=== PATIENT | female | born 1960 | race Caucasian/White ===

== ENCOUNTER 2017-03-28 17:15 | Inpatient (IN) | payer OTHER ==
[~2017-03-28] VITALS: Ht 152.4 cm; Wt 68.0 kg
--- NOTE | 2017-03-28 17:23 | ED MVC/FALL/TRAUMA COMPLAINT ---
History of Present Illness General Chief Complaint: Lower Extremity Problems Stated Complaint: BIBA LEG PAIN Source: patient, old records, EMS Exam Limitations: no limitations Vital Signs & Intake/Output Vital Signs & Intake/Output Vital Signs Date Time Temp Pulse Resp B/P B/P Pulse O2 O2 Flow FiO2 Mean Ox Delivery Rate 03/28 2228 97.5 76 18 134/80 97 Room Air Room Air 03/28 2033 97.4 80 18 143/82 97 Room Air 03/28 1747 98.0 75 16 122/75 96 Room Air Triage Note: PT BIBA FROM HOME WITH QUESTION OF LLE FX. PER EMS, PT WAS GETTING UP FROM HER WHEELCHAIR WHEN SHE HEARD A SNAP TO HER LLE. PT SAT BACK IN CHAIR AND CALLED 911. PT ARRIVES A&O, NAD. VSS PER EMS. Triage Nurses Notes Reviewed? yes Onset: Abrupt Duration: day(s): (1), constant Timing: recent history Severity: moderate Severity Numbers: 8 Injuries/Fall Location: lower extremity (llle) Method of Injury: unknown Loss of Consciousness: no loss of consciousness No Modifying Factors: none Associated Symptoms: denies HPI: 56-year-old female with history of RSD, in pain management presents complaining of left knee left foot and ankle pain after she states she got up from her wheelchair today and heard a "snap and has been having pain since. She denies fall. The patient states for the past week she has had pain to the left leg of unknown etiology. She had an ultrasound performed last week that ruled out a blood clot. She denies any redness or warmth to the leg. No fever no chills no chest pain or shortness of breath. She been taking her pain medications as prescribed however without improvement. No other modifying factors or associated symptoms otherwise. (Antony Barreto) Past History Travel History Traveled to [place] past 21 day No Medical History Any Pertinent Medical History? see below for history Musculoskeletal: rsd Surgical History Surgical History: non-contributory Family History Hx Contributory? No (Antony Barreto) Review of Systems Review of Systems Constitutional: Reports: see HPI. Comments Review of systems: See HPI, All other systems negative. Constitutional, no chills no fever, no malaise HEENT: no sore throat no congestion Cardiovascular: No chest pain Skin: no rashes, no change in skin Respiratory: No dyspnea no cough no sputum GI: No nausea no vomiting, : No dysuria No hematuria, no frequency Muscle skeletal: No joint pain, no back pain, no neck pain, Neurologic: , no headache Heme/endocrine: No bruising Immunology: No lymphadenopathy (Antony Barreto) Physical Exam Physical Exam General Appearance: well developed/nourished, alert, awake Comments: Well-developed well-nourished person in no acute distress HEENT: Normal EENT exam; PERRL, EOMI. HEAD is atraumatic. moist mucous membranes. Neck: Supple, normal range of motion Back: Nontender, Full range of motion Cardiovascular: Regular rate and rhythms no murmurs rubs Respiratory: No respiratory distress. Patient speaking in full complete sentences. Breath sounds clear to auscultation bilaterally: NO W/R/R Hip/Pelvis: Atraumatic/Stable. FROM. Knee: Atraumatic/stable. FROM. No joint swelling, no effusion. No laxity. Negative mae/anterior drawer test. No pain with ROM Leg: b/l leg 4+ edema, 5 out of 5 strength in the lower extremity, normal dorsiflexion of great toe bilaterally, gross sensation is intact. Ankle/Foot: Atraumatic/stable. Skin intact. FROM. No swelling, no effusion. No laxity on exam Pulses: Normal/equal DP/PT pulses bilaterally. Brisk cap refill UPPER Extremity: No edema, full range of motion of extremities, normal and equal pulses bilaterally, 5 out of 5 strength noted to bilateral upper and lower extremities Neuro: Alert oriented x3, motor sensory normal, There were no obvious focal neurologic abnormalities. Skin: No appreciable rash on exposed skin, skin is warm and dry. Psych: Mood and affect is normal, memory and judgment is normal. Core Measures ACS in differential dx? No CVA/TIA Diagnosis No Sepsis Present: No Sepsis Focused Exam Completed? No (Antony Barreto) Progress Differential Diagnosis: ext injury, fx, sprain, contusion, tendon inj Plan of Care: Orders Procedure Date/time Status Heart Healthy Diet 03/29 B Active ED Holding Orders 03/28 2053 Active Admit to inpatient 03/28 2053 Active Vital Signs 03/28 2053 Active Code Status 03/28 2053 Active EKG 03/28 2051 Active Patient Data 03/28 2050 Active Durable Medical Equipment 03/28 1935 Active TROPONIN LEVEL 03/28 1918 Complete COMPREHENSIVE METABOLIC PANEL 03/28 1918 Complete CBC WITHOUT DIFFERENTIAL 03/28 1918 Complete EKG 03/28 1918 Active Intake & Output 03/28 1809 Active Laboratory Tests 03/28/17 2005: Anion Gap 10, Estimated GFR > 60, BUN/Creatinine Ratio 30.0 H, Glucose 101 H, Calcium 9.8, Total Bilirubin 0.5, AST 31, ALT 30, Alkaline Phosphatase 111, Troponin I < 0.01, Total Protein 8.0, Albumin 4.4, Globulin 3.6, Albumin/ Globulin Ratio 1.2, CBC w Diff NO MAN DIFF REQ, RBC 4.07 L, MCV 98.9, MCH 32.7 H, RDW 13.8, MPV 6.8 L, Gran % 80.1 H, Lymphocytes % 15.8 L, Monocytes % 3.7, Eosinophils % 0.2, Basophils % 0.2, Absolute Granulocytes 7.1 H, Absolute Lymphocytes 1.4, Absolute Monocytes 0.3, Absolute Eosinophils 0, Absolute Basophils 0, PUBS MCHC 33.0 Patient medicated with Dilaudid 1 mg IM x-rays ordered case discussed with Dr. Lambert agrees with plan. Patient reports pain in improved only temporarily discussed with the patient her family her x-ray findings may K with an additional 1 mg of Dilaudid, leg immobilizer applied case discussed with Dr. Ramos agrees with plan. case d/w dr hsu will admit. Diagnostic Imaging: Viewed by Me: Radiology Read. Discussed w/RAD: Radiology Read. Radiology Impression: PATIENT: WALTER LOVE PRESENT AGE: 56 PATIENT ACCOUNT NO: [id number] : 62 LOCATION: [facility] ORDERING PHYSICIAN: Antony SONI SERVICE DATE: 03/28/17 EXAM TYPE: RAD - XRY-KNEE COMPLETE LEFT EXAMINATION: XR KNEE, LEFT CLINICAL INFORMATION: Pain. [place] a snap. Rule out fracture. COMPARISON: None TECHNIQUE: AP, lateral, and both oblique views of the left knee. FINDINGS: There is a nondisplaced transverse fracture through the proximal tibial shaft. Bones are osteopenic. A subtle nondisplaced fracture is also likely present in the proximal fibular shaft at the metadiaphysis. No additional fractures are identified. There is mild to moderate tricompartmental degenerative arthritis in the knee. Small joint effusion. Soft tissues are swollen and edematous. IMPRESSION: 1. Nondisplaced transverse fractures of the proximal tibial and fibular diaphyses. 2. Osteopenia 3. Mild to moderate tricompartmental degenerative arthritis in the left knee DICTATED BY: Reji Kennedy MD DATE/TIME DICTATED:03/28/171919 RN PLACEMENT:EL DATE/TIME TRANSCRIBED:03/28/171919 CONFIDENTIAL, DO NOT COPY WITHOUT APPROPRIATE AUTHORIZATION. <Electronically signed in Other Vendor System> SIGNED BY: Reji Kennedy MD 03/28/171925, PATIENT: WALTER LOVE PRESENT AGE: 56 PATIENT ACCOUNT NO: [id number] : 64 LOCATION: [facility] ORDERING PHYSICIAN: Antony SONI SERVICE DATE: 03/28/17 EXAM TYPE: RAD - XRY-ANKLE 3 OR MORE VIEWS L EXAMINATION: XR ANKLE, LEFT CLINICAL INFORMATION: Pain. Rule out fracture. COMPARISON: None TECHNIQUE: AP, lateral, and mortise views of the left ankle. FINDINGS: Bones are osteopenic and gracile. Soft tissues are diffusely swollen and edematous. There is a deformity of the hindfoot with a collapsed, flattened appearance of the talar dome. This is favored to be chronic in nature. There is likely mild superimposed degenerative arthritis. The subtalar joint and calcaneus appear distorted as a result of the abnormal anatomy in this region. There is a 2.5 cm long osseous fragment in the region of the Achilles tendon which may have resulted from an avulsion fracture at the calcaneal insertion. This is positioned 2 cm from the calcaneal insertion is age-indeterminate. Mild degenerative arthritis is present IMPRESSION: 1. Abnormal morphology of the talar dome and hindfoot the hindfoot, most likely chronic or developmental in nature. There is mild associated talocrural degenerative arthritis. 2. A 2.5 cm osseous fragment in the region of the distal Achilles which could correspond to an avulsion injury at the insertion on the calcaneus. This is age-indeterminate. Sensitivity for hindfoot fractures is limited. Consider correlation with dedicated foot radiographs or CT if there is concern for fracture in this region. 3. Diffuse soft tissue swelling and subcutaneous edema. DICTATED BY: Reji Kennedy MD DATE/TIME DICTATED:03/28/171922 RN PLACEMENT:EL DATE/TIME TRANSCRIBED:03/28/171922 CONFIDENTIAL, DO NOT COPY WITHOUT APPROPRIATE AUTHORIZATION. <Electronically signed in Other Vendor System> SIGNED BY: Reji Kennedy MD 03/28/171930 Initial ED EKG: normal intervals, normal p-waves, normal QRS complex, normal sinus rhythm (Antony Barreto) Departure Departure Time of Disposition: 2039 Disposition: STILL A PATIENT Condition: Stable Clinical Impression Primary Impression: Fracture of proximal end of tibia and fibula Referrals: Unknown Departure Forms: Customer Survey General Discharge Information Admission Note Spoke With: Lopez Hsu MD Documentation of Exam: Documentation of any treatments & extenuating circumstances including Concerns Regarding Discharge (functional status, medication knowledge or non-compliance, living conditions, etc.) that warrant an admission rather than observation: ortho consult, iv pain control, pt consult, pt unsafe at home, unsafe ambulation , premature discharge woudl be medicall y harmful (Antony Barreto) Admission Note Documentation of Exam: Documentation of any treatments & extenuating circumstances including Concerns Regarding Discharge (functional status, medication knowledge or non-compliance, living conditions, etc.) that warrant an admission rather than observation: PA/GLASS FITTER Co-Sign Statement Statement: ED Attending supervision documentation- [X] I saw and evaluated the patient. I have also reviewed all the pertinent lab results and diagnostic results. I agree with the findings and the plan of care as documented in the PA's/GLASS FITTER's documentation. [X] I have reviewed the ED Record and agree with the PA's/GLASS FITTER's documentation. [] Additions or exceptions (if any) to the PAs/GLASS FITTER's note and plan are summarized below: [ADMIT FOR IV PAIN CONTROL, ORTHO CONSULT, PT EVALUATION AND TREATMENT] (Richard CUI,Anthony Mckeon) (Richard CUI,Anthony Mckeon)
--- NOTE | 2017-03-28 19:26 | RADIOLOGY REPORT ---
EXAMINATION: XR KNEE, LEFT CLINICAL INFORMATION: Pain. [place] a snap. Rule out fracture. COMPARISON: None TECHNIQUE: AP, lateral, and both oblique views of the left knee. FINDINGS: There is a nondisplaced transverse fracture through the proximal tibial shaft. Bones are osteopenic. A subtle nondisplaced fracture is also likely present in the proximal fibular shaft at the metadiaphysis. No additional fractures are identified. There is mild to moderate tricompartmental degenerative arthritis in the knee. Small joint effusion. Soft tissues are swollen and edematous. IMPRESSION: 1. Nondisplaced transverse fractures of the proximal tibial and fibular diaphyses. 2. Osteopenia 3. Mild to moderate tricompartmental degenerative arthritis in the left knee
--- NOTE | 2017-03-28 19:31 | RADIOLOGY REPORT ---
EXAMINATION: XR ANKLE, LEFT CLINICAL INFORMATION: Pain. Rule out fracture. COMPARISON: None TECHNIQUE: AP, lateral, and mortise views of the left ankle. FINDINGS: Bones are osteopenic and gracile. Soft tissues are diffusely swollen and edematous. There is a deformity of the hindfoot with a collapsed, flattened appearance of the talar dome. This is favored to be chronic in nature. There is likely mild superimposed degenerative arthritis. The subtalar joint and calcaneus appear distorted as a result of the abnormal anatomy in this region. There is a 2.5 cm long osseous fragment in the region of the Achilles tendon which may have resulted from an avulsion fracture at the calcaneal insertion. This is positioned 2 cm from the calcaneal insertion is age-indeterminate. Mild degenerative arthritis is present IMPRESSION: 1. Abnormal morphology of the talar dome and hindfoot the hindfoot, most likely chronic or developmental in nature. There is mild associated talocrural degenerative arthritis. 2. A 2.5 cm osseous fragment in the region of the distal Achilles which could correspond to an avulsion injury at the insertion on the calcaneus. This is age-indeterminate. Sensitivity for hindfoot fractures is limited. Consider correlation with dedicated foot radiographs or CT if there is concern for fracture in this region. 3. Diffuse soft tissue swelling and subcutaneous edema.
[2017-03-28 20:20] LABS: ABSOLUTE BASOPHIL COUNT 0 /CUMM (0.0-0.2); ABSOLUTE EOSINOPHIL COUNT 0 /CUMM (0.0-0.7); ABSOLUTE GRANULOCYTE CT 7.1 /CUMM (1.4-6.5); ABSOLUTE LYMPH COUNT 1.4 /CUMM (1.2-3.4); ABSOLUTE MONOCYTE COUNT 0.3 /CUMM (0.10-0.60); BASOPHIL % 0.2 % (0.0-2.0); EOSINOPHIL % 0.2 % (0-5); GRANULOCYTE % 80.1 % (42.2-75.2); HEMATOCRIT 40.2 % (37-47); MEAN CORPUSCULAR HGB 32.7 PG (27.0-31.0); MEAN CORPUSCULAR VOLUME 98.9 FL (81.0-99.0); MEAN PLATELET VOLUME 6.8 FL (7.4-10.4); PLATELET COUNT 278 /CUMM (130-400); RBC DISTRIBUTION WIDTH 13.8 % (11.5-14.5); RED BLOOD CELL CT 4.07 /CUMM (4.20-5.40); WHITE BLOOD CELL COUNT 8.9 /CUMM (4.8-10.8)
--- NOTE | 2017-03-28 22:34 | History & Physical ---
Azucena CUI,[facility] 03/28/17 2233: General Information and [facility] MD Statement: I have seen and personally examined WALTER LOVE and documented this H&P. The patient is a 56 year old F who presented with a patient stated chief complaint of [left leg pain]. Source of Information: patient, family Exam Limitations: no limitations, physical impairment History of Present Illness: This is a 56-year-old female with past medical history of complex regional pain syndrome, hypertension, mitral valve prolapse, narcolepsy, thyroid nodules, bilateral lymphedema came to [facility] with complaints of left leg pain since morning. Patient gives history of left leg calf pain for the past 1 week and was seen by Dr. Ballard who did ultrasound of his left leg and ruled out DVT. Patient continued having left leg pain and noticed bilateral swelling and redness for the past 1 week. Apparently patient is using cane at home but for the past 1 week because of the pain in her legs she started using wheelchair. Today morning patient tried to get up from the wheelchair and heard a popping sensation in her left leg with transient episode of dizziness. Since then patient was not able to walk and was in severe pain. Immediately she called 911 and was brought to [facility]. Patient also gives a history of treating for possible cellulitis left leg with by mouth dicloxacillin. Patient also complains of numbness, alterations and increased insulin needles sensation in the left leg recently. She was also noticed that her left leg is more in the [place] swollen compared to the right. Patient had left hip replacement 2 years ago and since then she started developing bilateral lymphedema. Patient gives a past history of navicular bone fracture following which she developed complex regional pain syndrome.Patient is in pain management for the same and seeing Dr. Ballard. Patient was on methadone and stop treatment 2 months ago. Patient denies alcohol/smoking use. Past surgical history-2 section, right rotator cuff tear repair, left sympathectomy, club foot repair, tonsillectomy, left hip replacement. Allergies/Medications Allergies: Coded Allergies: ibuprofen (From MOTRIN) ([facility] 03/29/17) meperidine (From DEMEROL) ([facility] 03/29/17) Home Med list Hydromorphone HCl 8 MG TABLET 1 TAB PO 4 TIMES/DAY pain (Reported) Metoprolol Succ XL (Toprol XL) 25 MG TAB 1 TAB PO DAILY heart rate (Reported) Modafinil 200 MG TABLET 1 TAB PO DAILY narcolepsy (Reported) Oxycodone HCl 30 MG TABLET 3 TAB PO Q6P pain (Reported) Compliance With Home Meds: GOOD Past History Travel History Traveled to [place] past 21 day No Medical History Neurological: narcolepsy Cardiovascular: hypertension (mvp), mvp Musculoskeletal: rsd Isolation History: Standard Surgical History Surgical History: , hip replacement Past Family/Social History Family History Relations & Conditions if any Relation not specified for: FH: Hodgkin's disease Psychosocial History Where do you live? Home Who Do You Live With? parent Services at Home: None Primary Language: Chinese Smoking Status: Never Smoked ETOH Use: denies use Functional Ability ADLs Independent: dressing, eating, toileting, bathing. Ambulation: independent IADLs Independent: shopping, housework, finances, food prep, telephone, transportation , medication admin. Review of Systems Review of Systems Constitutional: Reports: no symptoms. Cardiovascular: Reports: no symptoms. Respiratory: Reports: no symptoms. GI: Reports: no symptoms. Genitourinary: Reports: no symptoms. Musculoskeletal: Reports: joint pain. Skin: Reports: no symptoms. Exam & Diagnostic Data Last 24 Hrs of Vital Signs/I&O Vital Signs Date Time Temp Pulse Resp B/P B/P Pulse O2 O2 Flow FiO2 Mean Ox Delivery Rate 03/29 0018 98.3 86 20 128/84 96 Room Air 03/28 2228 97.5 76 18 134/80 97 Room Air Room Air 03/28 2033 97.4 80 18 143/82 97 Room Air 03/28 1747 98.0 75 16 122/75 96 Room Air Intake & Output 03/29 0800 03/29 0000 03/28 1600 Intake Total Output Total Balance Patient 150 lb Weight Weight Reported by Patient Measurement Method Physical Exam General Appearance Alert, Oriented X3, Cooperative, Mild Distress Cardiovascular Regular Rate, Normal S1, Normal S2, No Murmurs Lungs Clear to Auscultation Abdomen Normal Bowel Sounds, Soft, No Tenderness, No Hepatospenomegaly Neurological Strength at 5/5 X4 Ext, Sensation Intact Extremities Normal Pulses, bilateral redness, bilateral pedal edema. Body Front and Back (Adult) 1) redness and swelling 2) redness and swelling Last 24 Hrs of Labs/Faheem: Laboratory Tests 03/28/172004: Anion Gap 10, Estimated GFR > 60, BUN/Creatinine Ratio 30.0 H, Glucose 101 H, Calcium 9.8, Total Bilirubin 0.5, AST 31, ALT 30, Alkaline Phosphatase 111, Troponin I < 0.01, Total Protein 8.0, Albumin 4.4, Globulin 3.6, Albumin/ Globulin Ratio 1.2, CBC w Diff NO MAN DIFF REQ, RBC 4.07 L, MCV 98.9, MCH 32.7 H, RDW 13.8, MPV 6.8 L, Gran % 80.1 H, Lymphocytes % 15.8 L, Monocytes % 3.7, Eosinophils % 0.2, Basophils % 0.2, Absolute Granulocytes 7.1 H, Absolute Lymphocytes 1.4, Absolute Monocytes 0.3, Absolute Eosinophils 0, Absolute Basophils 0, PUBS MCHC 33.0 Diagnostic Data Other Results ankle xray IMPRESSION: 1. Abnormal morphology of the talar dome and hindfoot the hindfoot, most likely chronic or developmental in nature. There is mild associated talocrural degenerative arthritis. 2. A 2.5 cm osseous fragment in the region of the distal Achilles which could correspond to an avulsion injury at the insertion on the calcaneus. This is age-indeterminate. Sensitivity for hindfoot fractures is limited. Consider correlation with dedicated foot radiographs or CT if there is concern for fracture in this region. 3. Diffuse soft tissue swelling and subcutaneous edema. knee xray IMPRESSION: 1. Nondisplaced transverse fractures of the proximal tibial and fibular diaphyses. 2. Osteopenia 3. Mild to moderate tricompartmental degenerative arthritis in the left knee Assessment/Plan Assessment: This is a 56-year-old female with past medical history of complex regional pain syndrome, hypertension, mitral valve prolapse, narcolepsy, thyroid nodules, bilateral lymphedema came to [place] [facility] with complaints of left leg pain since morning found to have proximal tibial and fibular nondisplaced transverse fracture and admitted to general medical floor for further investigation and management. Problem list 1. Fracture proximal tibial and fibular diaphysis 2. Osteoporosis 3. Hypertension 4. Bilateral chronic lymphedema 5. Narcolepsy 6. Complex regional pain syndrome Assessment and plan * we will admit the patient in general medical floor and get orthopedic consult for the fracture proximal tibial and fibular diaphysis. Given the nature of the fracture we will manage conservatively for now. We will get an PT and OT consult in a.m. We will obtain reports from the primary care physician regarding her ultrasound Doppler done last week. * Given the patient's history of osteopenia we will do a vitamin D, PTH. We will continue her blood pressure medication metoprolol. * Her bilateral chronic lymphedema with recent increase in swelling and erythema , concerns for cellulitis but given that the patient is already taking dicloxacillin for last 1 week we will advise her to finish the course and continue monitoring her. I * We will continue her pain medication Dilaudid 8 mg every 6, oxycodone CR 60 mg every 12, lidocaine patch, Tylenol 650 every 8. We will give her regular diet. * Please check CTPMP Code-full code DVT prophylaxis-subcutaneous heparin As Ranked By This Provider Problem List: 1. Fracture of proximal end of tibia and fibula Core Measures/Misc (12/18) Acute Coronary Syndrome ACS Diagnosis: No Congestive Heart Failure Congestive Heart Failure Diagnosis No Cerebrovascular Accident CVA/TIA Diagnosis: No VTE (View Protocol) VTE Risk Factors Age>40 No Mechanical VTE Prophylaxis d/t Other No VTE Pharm Prophylaxis d/t Other Sepsis (View protocol) Sepsis Present: No Lopez Hsu 03/29/17 0848: Attending MD Review Statement Attending Statement Attending MD Statement: examined this patient, discuss w/resident/PA/SIEBEL CRM DEVELOPER, agreed w/resident/PA/SIEBEL CRM DEVELOPER, discussed with family, reviewed EMR data (avail), reviewed images, amended to note Attending Assessment/Plan: CC: Cracking sensation in leg PMH: Complex regional pain syndrome, HTN, mitral valve prolapse, narcolepsy, osteoporosis, history of hip replacement 4-year-old back Patient had bilateral lower extremity pain and swelling and redness since last 1 week, DVT was ruled out by her primary care physician with ultrasound outpatient , patient was treated with dicloxacillin for possible cellulitis but patient denies any significant redness and that time either. Finishing up her antibiotics but today when she was getting up from the chair, noticed a popping sensation in her left leg followed by severe pain so she came to ER. No trauma, no fall, no pain in any other location. Otherwise ROS unremarkable. Vitals: Afebrile, pulse in 70s, RR 16, blood pressure 122/75, saturating well on room air. On exam: A O 3, cooperative, no acute distress, neck supple, JVD normal, no lymphadenopathy, mucosa moist, no focal neurological deficit, bilateral lower extremity nonpitting edema left more than tried, blackish discoloration on medial aspect of the right leg without any evidence of secondary cellulitis or open wounds, CVS: S1-S2, RRR. RS: Clear to auscultate bilaterally. Abdomen: Soft , NT, ND, bowel sounds present. Labs: CBC, BMP, LFT, troponin unremarkable X-ray ankle and x-ray knee 1. Nondisplaced transverse fractures of the proximal tibial and fibular diaphyses. 2. Osteopenia 3. Mild to moderate tricompartmental degenerative arthritis in the left knee 4. Abnormal morphology of the talar dome and hindfoot the hindfoot, most likely chronic or developmental in nature. There is mild associated talocrural degenerative arthritis. 5. A 2.5 cm osseous fragment in the region of the distal Achilles which could correspond to an avulsion injury at the insertion on the calcaneus. This is age-indeterminate. Sensitivity for hindfoot fractures is limited. Consider correlation with dedicated foot radiographs or CT if there is concern for fracture in this region. 6. Diffuse soft tissue swelling and subcutaneous edema. Assessment and plan 56-year-old female with past medical history significant for Complex regional pain syndrome, HTN, mitral valve prolapse, narcolepsy, osteoporosis, history of hip replacement 4-year-old back presented in ER for popping sensation in left leg with minimal movement and she is found to have a nondisplaced transverse fracture of proximal tibia and fibula diaphysis. Orthopedic was called who suggested pain management and conservative approach, patient is unable to walk because of the fracture and needs rehabilitation placement. Patient is on significant amount of pain medications for her complex regional pain syndrome. She also has multiple fractures with trivial trauma, not on treatment for osteoporosis, will require outpatient follow for the same. + Nondisplaced transverse fractures of the proximal tibial and fibular diaphyses. + Complex regional pain syndrome, HTN, mitral valve prolapse, narcolepsy, osteoporosis, history of hip replacement 4-year-old back - Admit to general medicine - Adequate pain management - Orthopedic consult in a.m. - No evidence of cellulitis bilateral lower extremity - Evaluate for STIR - Check PTH and TSH - Continue her home medications - Need outpatient treatment for osteoporosis - Obtain records for DVT Doppler done outpatient. Ajay Monroeangela 03/29/17 0930: Resident Review Statement Resident Statement: examined this patient, discussed with internal combustion engine subassembler, agreed with internal combustion engine subassembler Other Findings: Ms Love is a 56-year-old woman came in for evaluation of acute onset of pain in left leg, after she heard a snap while she was sitting in her wheelchair. PMHx of complex regional pain syndrome status post sympathectomy, hip fracture status post left hip replacement that was completed by lymphedema (left), osteoporosis, recent evaluation for swelling of left upper extremity. Symptoms started approximately a week ago, when she had pain in her left calf pain for which Dr. Ballard ruled out deep venous thrombosis, but was treating cellulitis with dicloxacillin.. While she was in her wheelchair, she heard a popping sensation in her left leg, and experienced severe pain. Pain 10/10, with no radiation. At the time of admission-vitals 98.0, pulse rate 75, respirations 16, blood pressure 122/75. On examination, General Exam: AAOx3, No acute distress, Skin: Slightly Erythematous, and edematous left lower extremity, stasis discoloration, tender of left lower extremity. Right lower extremity had 2+ pitting edema, less swollen than left lower extremity. No erythema or tenderness found on right lower activity.CVS: Reg Rate, Normal S1,S2, No MGRResp : Normal air entry, no ronchi/rales;Abdomen: Soft, No tenderness, Normal Bowel Sounds; Neuro: Strength could not be tested in left lower extremity, but otherwise within normal limits. She did not have any paresthesias, loss of sensation. Pulses intact in left lower extremity. Lab findings- WAC 8.9, hemoglobin 13.3, platelets 278. Sodium 140, potassium 4.4. Knee and ankle [id number] nondisplaced transverse fractures of the proximal tibial and fibular diaphyses. Osteopenia. Mild to moderate tricompartmental degenerative arthritis in the left knee. Abnormal morphology of the talar dome and hindfoot the hindfoot, most likely chronic or developmental in nature. There is mild associated talocrural degenerative arthritis. 2.5 cm osseous fragment in the region of the distal Achilles which could correspond to an avulsion injury at the insertion on the calcaneus. This is age-indeterminate. Sensitivity for hindfoot fractures is limited. Etiology not case, is likely from osteoporosis. She was treated with possible alendronate in the past, which was discontinued. Elevated BMI, some form of deconditioning might have contributed to a spontaneous fracture. Given history of multiple fractures in the past, it is not too far off to think of collagen 1 mutations in her case, but she does not have other signs and symptoms. Does not give a history of prednisone use. Plan: #1 nondisplaced tibial and fibular fractures- arrest at this time, conservative management as per orthopedic surgery. Consult orthopedic for formal evaluation. PTOT as per the primary team evaluation. She has a history of osteoporosis, which needs to be managed to prevent any further fractures. #2 pain management for RSD- she is on very high doses of Dilaudid-8 mg every 4-6 hourly, and oxycodone 90 mg every 4-6 hourly. Discussed with the pharmacy at length, and changed it to OxyContin 60 mg by mouth twice a day and Dilaudid 8 mg every 6 hourly. This needs to be reevaluated, with the primary care physician and the patient. #3 history of cellulitis- no antibiotics indicated at this time. Housekeeping: #1 DVT prophylaxis-subcutaneous heparin #2 pain pathway-Dilaudid and OxyContin which needs to be reevaluated. Inform the primary team #3 medical records-please obtain medical records in relation to ultrasound lower extremity.
[2017-03-29] MEDS ORDERED: HYDROMORPHONE HC8 M1 PO (00:02)
[2017-03-29] MEDS ORDERED: MODAFINIL200 M1 PO (00:03)
[2017-03-29] MEDS ORDERED: OXYCODONE HCL30 M1 PO (00:03)
[2017-03-29] MEDS ORDERED: TOPROL XL25 M1 PO (00:03)
[2017-03-29 00:18] VITALS: BP 128/84
[2017-03-29 07:45] VITALS: BP 144/92
--- NOTE | 2017-03-29 07:58 | PN- Housestaff ---
FrankRosie 03/29/17 0746: Subjective Follow-up For: Fracture proximal tibial and fibular diaphysis Osteoporosis Hypertension Bilateral chronic lymphedema Narcolepsy Complex regional pain syndrome Subjective: Patient was in mild distress from her pain of left tibial fracture, rating 8-9/ 10, but denied pain in other parts of body. Review of Systems Constitutional: Reports: see HPI. Objective Last 24 Hrs of Vital Signs/I&O Vital Signs Date Time Temp Pulse Resp B/P B/P Pulse O2 O2 Flow FiO2 Mean Ox Delivery Rate 03/29 0745 98.1 92 20 144/92 95 Room Air 03/29 0018 98.3 86 20 128/84 96 Room Air 03/28 2228 97.5 76 18 134/80 97 Room Air Room Air 03/28 2033 97.4 80 18 143/82 97 Room Air 03/28 1747 98.0 75 16 122/75 96 Room Air Intake & Output 03/29 0800 03/29 0000 03/28 1600 Intake Total 240 Output Total Balance 240 Intake, Oral 240 Patient 68.039 kg Weight Weight Reported by Patient Measurement Method Physical Exam General Appearance: Alert, Oriented X3, Cooperative, Mild Distress Cardiovascular: Regular Rate Lungs: Clear to Auscultation, Normal Air Movement Abdomen: Normal Bowel Sounds, Soft, No Tenderness Neurological: Normal Speech Extremities: Bilateral pedal edema Pain 9/10 on LLE fracture, but otherwise no pain in other parts of body Current Medications: Current Medications Sig/Diego Start time Last Medication Dose Route Stop Time Status Admin Acetaminophen 650 MG Q8P PRN 03/28 2315 AC PO Heparin Sodium 5,000 UNIT Q8 03/29 0600 AC 03/29 (Porcine) SC 0528 Heparin Sodium 5,000 UNIT Q8 03/29 0600 CAN (Porcine) SC Hydromorphone HCl 8 MG Q6P PRN 03/29 0100 AC 03/29 PO 0642 Hydromorphone HCl 8 MG Q6P PRN 03/29 0015 DC PO Hydromorphone HCl 0 .STK-MED ONE 03/28 2157 DC .ROUTE Hydromorphone HCl 1 MG ONCE ONE 03/28 1930 DC 03/28 IV 03/28 Hydromorphone HCl 0 .STK-MED ONE 03/28 1923 DC .ROUTE Hydromorphone HCl 1 MG ONCE ONE 03/28 1915 DC 03/28 IM 03/28 1916 1925 Hydromorphone HCl 0 .STK-MED ONE 03/28 1804 DC .ROUTE Hydromorphone HCl 1 MG ONCE ONE 03/28 1730 DC 03/28 IM 03/28 173 1809 Influenza Virus 0.5 ML ONCE ONE 03/29 1000 AC Vaccine IM 03/29 1001 Lidocaine 1 PAT Q24H 03/28 2300 AC 03/29 EXT 0047 Metoprolol Succinate 25 MG DAILY 03/29 1000 AC PO Morphine Sulfate 2 MG ONCE ONE 03/29 0345 DC 03/29 IV 03/29 0346 0336 Morphine Sulfate 2 MG Q4P PRN 03/28 2300 DC 03/28 IV 2332 Oxycodone HCl 60 MG Q12 03/29 1000 AC PO Oxycodone HCl 90 MG Q6P PRN 03/29 0015 DC PO Oxycodone HCl 5 MG Q6 PRN 03/28 2315 DC PO Last 24 Hrs of Lab/Faheem Results Last 24 Hrs of Labs/Mics: Laboratory Tests 03/29/17 0730: Sodium Pending, Potassium Pending, Chloride Pending, Carbon Dioxide Pending, Anion Gap Pending, BUN Pending, Creatinine Pending, BUN/Creatinine Ratio Pending , 25-OH Vitamin D Total Pending, PTH Intact Pending, CBC w Diff Pending, WBC Pending, RBC Pending, Hgb Pending, Hct Pending, MCV Pending, MCH Pending, RDW Pending, Plt Count Pending, MPV Pending, PUBS MCHC Pending 03/28/172004: Anion Gap 10, Estimated GFR > 60, BUN/Creatinine Ratio 30.0 H, Glucose 101 H, Calcium 9.8, Total Bilirubin 0.5, AST 31, ALT 30, Alkaline Phosphatase 111, Troponin I < 0.01, Total Protein 8.0, Albumin 4.4, Globulin 3.6, Albumin/ Globulin Ratio 1.2, CBC w Diff NO MAN DIFF REQ, RBC 4.07 L, MCV 98.9, MCH 32.7 H, RDW 13.8, MPV 6.8 L, Gran % 80.1 H, Lymphocytes % 15.8 L, Monocytes % 3.7, Eosinophils % 0.2, Basophils % 0.2, Absolute Granulocytes 7.1 H, Absolute Lymphocytes 1.4, Absolute Monocytes 0.3, Absolute Eosinophils 0, Absolute Basophils 0, PUBS MCHC 33.0 Assessment/Plan Assessment: Ms. Ortiz is a 56-year-old female with past medical history of complex regional pain syndrome, hypertension, mitral valve prolapse, narcolepsy, thyroid nodules, bilateral lymphedema came to [place] ER with complaints of left leg pain since morning found to have proximal tibial and fibular nondisplaced transverse fracture and admitted to general medical floor for further investigation and management. Problem list Fracture proximal tibial and fibular diaphysis Osteoporosis Hypertension Bilateral chronic lymphedema Narcolepsy Complex regional pain syndrome Patient was subsequently admitted to General Medicine floor for the management as follows: - Conservative management with pain meds for now - Obtain record from PCP regarding U/S doppler last week. - Pending Ortho consult in the AM - Pending PT/OT consult - Check 25OHD, PTH - Continue Metoprolol at home dose. - Patient finished Dicloxacillin in the last week for suspect cellulitis w/ bilateral chronic lymp[hedema. Will continue monitor if any signs of infection. - Pain management w/ Dilaudid 8 mg every 6, oxycodone CR 60 mg every 12, lidocaine patch, Tylenol 650 every 8. - Check CTPMP - Patient's PCP is Fox Ballard in [place] [phone]. Dr. Ballard stated over hte phone that patient was currently on 24mg Dilaudid q4h prn and 150mg Oxycodone q4h prn. Dr. Ballard suggested that TURCIOS-2 and IV acetaminophen may work well for patient's bone pain. DVT prophylaxis-subcutaneous heparin Regular Diet Full Code Problem List: 1. Fracture of proximal end of tibia and fibula 2. Osteoporosis Pain Ratin Pain Location: LLE Fracture site Pain Goal: Pain 4 or less Pain Plan: see AP Tomorrow's Labs & Rationales: CBC/BEP Trina Penn MD 03/29/17 1044: Attending MD Review Statement Attending Statement Attending MD Statement: examined this patient, discuss w/resident/PA/WATERWORKS OPERATOR, agreed w/resident/PA/WATERWORKS OPERATOR, reviewed EMR data (avail), discussed with nursing, discussed with case mgmt, reviewed images Attending Assessment/Plan: Sheis a 56-year-old female past medical history of hypertension, complex regional pain syndromes on very high-dose narcotics with opiate dependence as an outpatient. She is here with a left tib-fib fracture status post minimal trauma i.e. questionable fragility fracture. We're awaiting a formal orthopedic consult. We have her on DVT prophylaxis and pain control has been a major issue. We've restarted her oxycodone 90mg every 6 as she says she takes as an outpatient with Dilaudid 8mg every 6 and also given the IV Dilaudid for rescue pain. We put her on a bowel regimen and we need to confirm the dose of the narcotics with her outpatient physician, PERI garcias once seen by orthopedics and follow closely.
[2017-03-29 08:10] LABS: ABSOLUTE BASOPHIL COUNT 0 /CUMM (0.0-0.2); ABSOLUTE EOSINOPHIL COUNT 0 /CUMM (0.0-0.7); ABSOLUTE GRANULOCYTE CT 3.9 /CUMM (1.4-6.5); ABSOLUTE LYMPH COUNT 1.7 /CUMM (1.2-3.4); ABSOLUTE MONOCYTE COUNT 0.4 /CUMM (0.10-0.60); BASOPHIL % 0.1 % (0.0-2.0); EOSINOPHIL % 0.4 % (0-5); GRANULOCYTE % 64.6 % (42.2-75.2); HEMATOCRIT 36.4 % (37-47); MEAN CORPUSCULAR HGB 32.9 PG (27.0-31.0); MEAN CORPUSCULAR HGB CONC 33.4 G/DL (33.0-37.0); MEAN CORPUSCULAR VOLUME 98.5 FL (81.0-99.0); MEAN PLATELET VOLUME 7.3 FL (7.4-10.4); PLATELET COUNT 173 /CUMM (130-400); RBC DISTRIBUTION WIDTH 13.9 % (11.5-14.5)
--- NOTE | 2017-03-29 08:50 | Admission Certification ---
Admission Certification Certification Statement - As attending physician, I certify that at the time of - admission, based on clinical presentation, severity of - symptoms, need for further diagnostic testing and - therapeutic interventions, and risk of adverse outcomes - without in-hospital treatment, in my clinical assessment, - this patient requires an acute hospital stay for a minimum - of two nights or longer. I have also considered psychsocial - factors such as support system, advanced age, financial - issues, cognitive issues, and failed out-patient treatments, - past re-admission history, safety of patient, and lack of - compliance as applicable. Specific rationale supporting this admission is: transverse fractures of the proximal tibial and fibular diaphyses, unable to ambulate
--- NOTE | 2017-03-29 10:33 | Patient Discharge Instructions ---
Discharge Instructions General Discharge Information You were seen/treated for: Fracture proximal tibial and fibular diaphysis Osteopenia Hypertension Bilateral chronic lymphedema Narcolepsy Complex regional pain syndrome Special Instructions: - Please complete your Nitrofurotoin treatment for a total of 7 days. - Please continue straight cath protocol and encourage voiding. - Please follow up with Dr. Bermudez for your tibial fracture care. - Please follow up with your pain management Dr. Ballard within 1-2 week of discharge. - Please follow up with your primary care physician within 1-2 week of discharge. Inform your primary care physician of this admission to [facility]. - Continue your current medications per discharge instructions. - Please watch for these problems: Fever, Chills, Nausea, Vomiting, Shortness of Breath, Productive Cough, Chest Pain/Discomfort, Abdominal Pain, Active Bleeding or Bloody urine/stool. Diet Continue normal diet: Yes Recommended Diet: Heart Healthy Activity Full Activity/No Limits: No Activity Self Limited: Yes Acute Coronary Syndrome Inclusion Criteria At DC or during hospital stay patient has or had the following: ACS DIAGNOSIS No Discharge Core Measures Meds if any: Prescribed or Continued at Discharge Meds if any: NOT Prescribed or Continued at Discharge Congestive Heart Failure Inclusion Criteria At DC or during hospital stay patient has or had the following: CHF DIAGNOSIS No Discharge Core Measures Meds if any: Prescribed or Continued at Discharge Meds if any: NOT Prescribed or Continued at Discharge Cerebrovascular accident Inclusion Criteria At DC or during hospital stay patient has or had the following: CVA/TIA Diagnosis No Discharge Core Measures Meds if any: Prescribed or Continued at Discharge Meds if any: NOT Prescribed or Continued at Discharge Venous thromboembolism Inclusion Criteria VTE Diagnosis No VTE Type NONE VTE Confirmed by (Test) NONE Discharge Core Measures - Per Current guidelines, there needs to be overlap - treatment for the first 5 days of Warfarin therapy. - If discharged on Warfarin prior to 5 days of - overlap therapy, the patient will need to be - assessed for post discharge needs including - *Post discharge parental anticoagulation - *Warfarin and/or parental anticoagulation education - *Follow up date to check INR post discharge At least 5 days overlap therapy as Inpatient No Meds if any: Prescribed or Continued at Discharge Note: Overlap Therapy is Warfarin and Anticoagulant Meds if any: NOT Prescribed or Continued at Discharge
--- NOTE | 2017-03-29 10:34 | Discharge Summary ---
Visit Information Visit Dates Admission Date: 03/28/17 Discharge Date: 04/02/17 Hospital Course Course Attending Physician: Fili CUI,Trina Bazan Primary Care Physician: Patient Has No Primary Care Dr Hospital Course: Ms. Ortiz is a 56-year-old female with past medical history of complex regional pain syndrome, hypertension, mitral valve prolapse, narcolepsy, thyroid nodules, bilateral lymphedema came to [facility] with complaints of left leg pain since morning when she was getting up from the chair, noticed a popping sensation in her left leg followed by severe pain so she came to ER.found to have proximal tibial and fibular nondisplaced transverse fracture and admitted to general medical floor for further investigation and management. Prior this admission, patient had bilateral lower extremity pain and swelling and redness x 1 week, with DVT ruled out by ultrasound. Patient was treated with dicloxacillin for possible cellulitis. completed the course and denied any significant redness. ER Course: Afebrile, pulse in 70s, RR 16, P 122/75, saturating well on room air. Physical exam significant for Bilateral lower extremity nonpitting edema left more than tried, blackish discoloration on medial aspect of the right leg without any evidence of secondary cellulitis or open wounds, CVS: S1-S2, RRR. RS: Clear to auscultate bilaterally. Abdomen: Soft, NT, ND, bowel sounds present. Labs: CBC, BMP, LFT, troponin all unremarkable Xray of left LE showed: Nondisplaced transverse fractures of the proximal tibial and fibular diaphyses. Patient was subsequently admitted to General medicine floor for the managemnt fo the following: #Left Tibial osteoporotic fracture Upon admission, orthopedic was consulted and recommended conservative management of pain, no surgical indicaion at the moment, and recommended knee immobilizaer w/ Ac wrap, and non-weight bearing. Patient was assessed by PT/OT with decreased functional baseline. She was subsequently dischargd to short-term rehab. #Chronic pain from complex regional pain syndrome. Patient had complex regional pain syndrome ever since she fractured the navicular bone. [facility] followed Dr. Fox Ballard for pain management, and was previously on Dilaudid 24mg every 4 hours, and 150m Oxycodone every 4 hours. During hospital stay, patient was managed by IV tylenol, Oxycodone, and Dilaudid to for pain control. Patient's pain was chronic and would need further outpatient follow up by Dr. Ballard after discharge. On discharge, patient was placed on 20mg PO Dilaudid every 6 hours, Oxycodone 90mg every 6 hours, Lidoderm patch, bowel regimen, and Vitamin D supplements. #Osteoporosis, likely idiopathic Patient had osteopenia shown on lower extremity Xray and fractured without mechanical fall, which fit the criteria of osteoporosis, despite we have no DEXA scan report. Patient was not currently on Bisphosphonate, however, her Vit-D was low 15s and PTH/Serum Calcium were within normal range. Patient should be followed up with PCP for osteoporosis as out patient. Patient was started on Vitamin D 2000IU daily for 25-OHD repletion. #Bilateral Chronic Lymphedema Patient had been treated by Dicloxacillin for possible cellulitis and she completed the antibiotic course before this admission. Patient denied any pain/ redness/fever of her right lower extremity during this admission, despite she had pain from fracture site of left tibial. Patient was monitored off antibiotics, and she was advised to followup outpatient for t lymphedema. DVT prophylaxis Heparin SC only Regular Diet Full Code Resident addendum: 1-patient has chronic constipation on her baseline, she has a bowel movement every 2-3 days, continue her aggressive bowel regimen 2-she is on straight catheter protocol, continue that and monitor her urine output closely 3-Complex regional pain syndrome and chronic opiate dependence: patient is following with Dr.Michael Ballard for the chronic pain and she is on high-dose narcotics, she needs to follow-up with her doctor regarding pain management 4-patient was seen by orthopedic surgeon during this hospitalization who recommend Artis wrap be used underneath the knee immobilizer to help with her skin irritation, Nonweightbearing left lower extremity, No flexion of the left knee, she needs rehabilitation facility and she needs to follow-up with Dr.Dr. Bermudez in 6 weeks, she should stay in the immobilizer over the next 8 weeks. Allergies: Coded Allergies: ibuprofen (From MOTRIN) ([facility] 03/29/17) meperidine (From DEMEROL) ([facility] 12/27/17) Pertinent Lab Results: SERVICE DATE: 03/28/17 EXAM TYPE: RAD - XRY-ANKLE 3 OR MORE VIEWS L IMPRESSION: 1. Abnormal morphology of the talar dome and hindfoot the hindfoot, most likely chronic or developmental in nature. There is mild associated talocrural degenerative arthritis. 2. A 2.5 cm osseous fragment in the region of the distal Achilles which could correspond to an avulsion injury at the insertion on the calcaneus. This is age-indeterminate. Sensitivity for hindfoot fractures is limited. Consider correlation with dedicated foot radiographs or CT if there is concern for fracture in this region. 3. Diffuse soft tissue swelling and subcutaneous edema. SERVICE DATE: 03/28/17 EXAM TYPE: RAD - XRY-KNEE COMPLETE LEFT IMPRESSION: 1. Nondisplaced transverse fractures of the proximal tibial and fibular diaphyses. 2. Osteopenia 3. Mild to moderate tricompartmental degenerative arthritis in the left knee Disposition Summary Disposition Principal Diagnosis: Fracture proximal tibial and fibular diaphysis Osteopenia Hypertension Bilateral chronic lymphedema Narcolepsy Complex regional pain syndrome Additional Diagnosis: As above Discharge Disposition: SNF Discharge Instructions General Discharge Information Code Status: Full Code Patient's Diet: Heart Healthy Patient's Activity: No weight bearing until further cleared by Orthopedics Follow-Up Instructions/Appts: -Follow-up with your pain management doctor, Fox Ballard after discharge for chronic pain or pleuritic dependent -Continue aggressive bowel regimen -Follow up with Dr. Bermudez in 6 weeks - stay in the immobilizer over the next 8 weeks. -No flexion of the left knee -Nonweightbearing left lower extremity Medications at Discharge Discharge Medications: Stop taking the following medications: Hydromorphone HCl (Hydromorphone HCl) 8 MG TABLET ORAL 4 TIMES A DAY Qty = 240 Oxycodone HCl (Oxycodone HCl) 30 MG TABLET ORAL EVERY SIX HOURS NEEDED Qty = 335 Continue taking these medications: Metoprolol Succ XL (Toprol XL) 25 MG TAB 1 Tablet ORAL DAILY Qty = 90 Modafinil (Modafinil) 200 MG TABLET 1 Tablet ORAL DAILY Qty = 180 Start taking the following new medications: Hydromorphone HCl (Hydromorphone HCl) 2 MG TABLET 20 Milligram ORAL EVERY SIX HOURS NEEDED as needed for PAIN SCALE 7-10 ( SEVERE) Qty = 10 No Refills Oxycodone HCl (Roxicodone) 30 MG TABLET 90 Milligram ORAL EVERY SIX HOURS NEEDED as needed for PAIN SCALE 4-6 ( MODERATE) Qty = 10 No Refills Cholecalciferol (Vitamin D3) 1,000 UNIT TABLET 2,000 International Unit ORAL DAILY Qty = 30 No Refills Bisacodyl (Bisac-Evac) 10 MG SUPP.RECT 10 Milligram RECTALLY DAILY as needed for CONSTIPATION Qty = 10 No Refills Na Phos,M-B/Na Phos,Di-Ba (Fleet Enema) 19 GRAM-7 GRAM/118 ML ENEMA 1 Unit RECTALLY GIVE ONCE as needed for CONSTIPATION Qty = 10 No Refills Polyethylene Glycol 3350 (Miralax) 17 GRAM/DOSE POWDER 17 Gram ORAL DAILY Qty = 10 No Refills Sennosides/Docusate Sodium (Senna Plus Tablet) 8.6 MG-50 MG TABLET 1 Tablet ORAL TWICE DAILY Qty = 10 No Refills Lidocaine (Lidoderm) 5 % ADH..PATCH 1 Patch ON SKIN Q24H Qty = 10 No Refills Nitrofurantoin (Macrodantin) 50 MG CAPSULE 100 Milligram ORAL EVERY 12 HOURS Qty = 8 No Refills Copies To: Elio CUI,Fox Mckeon
--- NOTE | 2017-03-29 12:21 | Cons- Orthopedic ---
General Information and HPI Consulting Request Date of Consult: 03/29/17 Requested By: Trina Penn MD History of Present Illness: 56-year-old female with left lower extremity pain for 1 week. Patient states approximately week ago for pain in her leg she was treated for cellulitis by her PCP. She was given doxycycline for suspected cellulitis however over the past 2 days the pain is increased and felt a snap in her leg. She went to [facility] emergency room and x-rays taken show nondisplaced tibial shaft fracture transverse type at the metaphyseal diaphyseal juncture. She was then given an immobilizer. She states she has no injury or trauma to that leg recently. She does have a history of being osteoporotic. She has a significant amount of lymphedema in the left lower extremity. Denies any paresthesias. States she has extreme pain in the lower extremity. She does have a history of complex regional pain syndrome. Allergies/Medications Allergies: Coded Allergies: ibuprofen (From MOTRIN) ([facility] 03/29/17) meperidine (From DEMEROL) ([facility] 03/29/17) Home Med List: Hydromorphone HCl 8 MG TABLET 1 TAB PO 4 TIMES/DAY pain (Reported) Metoprolol Succ XL (Toprol XL) 25 MG TAB 1 TAB PO DAILY heart rate (Reported) Modafinil 200 MG TABLET 1 TAB PO DAILY narcolepsy (Reported) Oxycodone HCl 30 MG TABLET 3 TAB PO Q6P pain (Reported) Past History Medical History Blood Transfusion Hx: No Neurological: narcolepsy Cardiovascular: hypertension (mvp), mvp Musculoskeletal: osteoporosis, rsd Surgical History Pertinent Surgical History: , hip replacement Family History Relations & Conditions If Any: Relation not specified for: FH: Hodgkin's disease Psychosocial History Where Do You Live? Home Who Do You Live With? parent Services at Home: None Primary Language: Maltese Smoking Status: Never Smoked ETOH Use: denies use Functional Ability ADLs Independent: dressing, eating, toileting, bathing. Ambulation: independent IADLs Independent: shopping, housework, finances, food prep, telephone, transportation , medication admin. Review of Systems Review of Systems: See chart Exam & Diagnostic Data Vital Signs and I&O Vital Signs Date Time Temp Pulse Resp B/P B/P Pulse O2 O2 Flow FiO2 Mean Ox Delivery Rate 03/29 1108 76 132/90 03/29 0745 98.1 92 20 144/92 95 Room Air 03/29 0018 98.3 86 20 128/84 96 Room Air 03/28 2228 97.5 76 18 134/80 97 Room Air Room Air 03/28 2033 97.4 80 18 143/82 97 Room Air 03/28 1747 98.0 75 16 122/75 96 Room Air Intake & Output 03/29 1600 03/29 0800 03/29 0000 03/28 1600 03/28 0800 03/28 0000 Intake Total 240 Output Total Balance 240 Intake, Oral 240 Patient 150 lb Weight Weight Reported by Patient Measurement Method Physical Exam: On physical exam the patient is alert and oriented 3. She does have significant amount of lymphedema on the left lower extremity. She has a what appears to be a pain patch on the left lower extremity. The skin is intact left lower extremity. Pulses are +2 and symmetrical. She is tender over the entire tibial shaft. Full range of motion of her ankle. Positive sensation light touch X-rays were reviewed show a nondisplaced tibial shaft fracture transverse type. Assessment/Plan Assessment/Plan Left tibial shaft fracture transverse in type nondisplaced -Knee immobilizer left lower extremity. Patient states this irritates her however I suggest an Artis wrap be used underneath the knee immobilizer to help with her skin irritation. -Nonweightbearing left lower extremity -No flexion of the left knee -Recommend rehabilitation facility -Follow with us will be in 6 weeks. This was reviewed with Dr. Bermudez she should stay in the immobilizer over the next 8 weeks. Consult Acknowledgment - Thank you for your consult request.
[2017-03-29 14:33] VITALS: BP 134/80
[2017-03-29 22:52] VITALS: BP 150/94
[2017-03-30 06:30] VITALS: BP 122/70
--- NOTE | 2017-03-30 08:34 | PN- Housestaff ---
See Addendum Subjective Follow-up For: Fracture proximal tibial and fibular diaphysis Osteoporosis Hypertension Bilateral chronic lymphedema Narcolepsy Complex regional pain syndrome Subjective: Fisher pain was well-controlled for 4 hours but not the rest of 2 hours for q6 schedule. Appeared distressed but denied other complaints. Review of Systems Constitutional: Reports: see HPI. Objective Last 24 Hrs of Vital Signs/I&O Vital Signs Date Time Temp Pulse Resp B/P B/P Pulse O2 O2 Flow FiO2 Mean Ox Delivery Rate 03/30 0630 98.4 72 18 122/70 93 Room Air 03/29 2252 97.5 77 20 150/94 95 Room Air 03/29 1732 Room Air Room Air 03/29 1433 98.1 81 20 134/80 94 Room Air 03/29 1108 76 132/90 Intake & Output 03/30 1600 03/30 0800 03/30 0000 Intake Total 500 500 Output Total 350 500 Balance 150 0 Intake, Oral 500 500 Number 0 Bowel Movements Output, Urine 350 500 Physical Exam General Appearance: Alert, Oriented X3, Cooperative, Moderate Distress Cardiovascular: Regular Rate Extremities: Bilateral chronic lymphedema, with lidoderm on LLE fracture site Current Medications: Current Medications Sig/Diego Start time Last Medication Dose Route Stop Time Status Admin Acetaminophen 1,000 MG Q6P PRN 03/29 1015 AC 03/30 N/A 1 UNIT IV 1002 Heparin Sodium 5,000 UNIT Q8 03/29 0600 AC 03/30 (Porcine) SC 0533 Hydromorphone HCl 4 MG Q6P PRN 03/29 0900 AC 03/30 IV 0533 Hydromorphone HCl 8 MG Q6P PRN 03/29 0100 AC 03/30 PO 0844 Lidocaine 1 PAT Q24H 03/28 2300 AC 03/29 EXT 2342 Metoprolol Succinate 25 MG DAILY 03/29 1000 AC 03/30 PO 1000 Oxycodone HCl 90 MG Q6P PRN 03/29 0900 AC 03/30 PO 1052 Polyethylene Glycol 17 GM DAILY 03/29 1000 AC 03/30 PO 1002 Senna/Docusate Sodium 1 TAB BID PRN 03/29 0900 AC PO Assessment/Plan Assessment: Ms. Ortiz is a 56-year-old female with past medical history of complex regional pain syndrome, hypertension, mitral valve prolapse, narcolepsy, thyroid nodules, bilateral lymphedema came to [place] [facility] with complaints of left leg pain since morning found to have proximal tibial and fibular nondisplaced transverse fracture and admitted to general medical floor for further investigation and management. Problem list Fracture proximal tibial and fibular diaphysis Osteoporosis Hypertension Bilateral chronic lymphedema Narcolepsy Complex regional pain syndrome Patient was subsequently admitted to General Medicine floor for the management as follows: - Conservative management with pain meds for now - Obtain record from PCP regarding U/S doppler last week. - Pending Ortho consult in the AM - PT/OT recommeded STR. 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 - Patient finished Dicloxacillin in the last week for suspect cellulitis w/ bilateral chronic lymp[hedema. Will continue monitor if any signs of infection. - Pain management w/ Dilaudid 8 mg every 6, oxycodone CR 60 mg every 12, lidocaine patch, Tylenol 650 every 8. - Check CTPMP - Patient's PCP is Fox Ballard in [place] [phone]. Dr. Ballard stated over hte phone that patient was currently on 24mg Dilaudid q4h prn and 150mg Oxycodone q4h prn. Dr. Ballard suggested that TURCIOS-2 and IV acetaminophen may work well for patient's bone pain. DVT prophylaxis-subcutaneous heparin Regular Diet Full Code Problem List: 1. Fracture of proximal end of tibia and fibula 2. Osteoporosis Pain Ratin Pain Location: LLE, complex pain syndrome Pain Goal: Pain 7 or less Pain Plan: see AP Tomorrow's Labs & Rationales: NA
[2017-03-30 14:04] VITALS: BP 140/60
[2017-03-30 22:40] VITALS: BP 128/90
[2017-03-31 06:50] VITALS: BP 120/86
--- NOTE | 2017-03-31 07:47 | PN- Housestaff ---
FrankRosie Matteo Dockery 03/31/17 0742: Subjective Follow-up For: Fracture proximal tibial and fibular diaphysis Osteoporosis Hypertension Bilateral chronic lymphedema Narcolepsy Complex regional pain syndrome Subjective: Patient said she spiked a fever of 100.3 last night (no VS record in EMR), and felt burning on peeing. Patient felt the adjusted pain regimen was not improving her pain. Review of Systems Constitutional: Reports: see HPI. Objective Last 24 Hrs of Vital Signs/I&O Vital Signs Date Time Temp Pulse Resp B/P B/P Pulse O2 O2 Flow FiO2 Mean Ox Delivery Rate 03/31 0650 98.9 95 18 120/86 92 Room Air 03/31 0000 94 Room Air 03/30 2240 99.9 90 18 128/90 94 Room Air 03/30 1833 Room Air Room Air 03/30 1814 Room Air Room Air 03/30 1404 98.5 81 20 140/60 94 Room Air 03/30 1000 72 122/70 Intake & Output 03/31 0800 03/31 0000 03/30 1600 Intake Total 480 1200 Output Total 974 297 0441 Balance -275 280 200 Intake, Oral 480 1200 Number 0 Bowel Movements Output, Urine 105 913 2635 Physical Exam General Appearance: Alert, Oriented X3, Cooperative, Moderate Distress Cardiovascular: Regular Rate Lungs: Clear to Auscultation, Normal Air Movement Neurological: Normal Speech Extremities: b/l chronic edematous, left tibial in lidoderm Current Medications: Current Medications Sig/Diego Start time Last Medication Dose Route Stop Time Status Admin Acetaminophen 1,000 MG Q6P PRN 03/29 1015 AC 03/30 N/A 1 UNIT IV 1002 Cholecalciferol 2,000 IU DAILY 03/31 1000 AC PO Cholecalciferol 1,000 IU DAILY 03/30 1135 DC 03/30 PO 1252 Heparin Sodium 5,000 UNIT Q8 03/29 0600 AC 03/31 (Porcine) SC 0615 Hydromorphone HCl 12 MG Q6P PRN 03/30 1530 AC 03/31 PO 0415 Hydromorphone HCl 2 MG Q6P PRN 03/30 1530 AC 03/31 IV 0125 Hydromorphone HCl 4 MG Q6P PRN 03/29 0900 DC 03/30 IV 1216 Hydromorphone HCl 8 MG Q6P PRN 03/29 0100 DC 03/30 PO 1522 Lidocaine 1 PAT Q24H 03/28 2300 AC 03/29 EXT 2342 Metoprolol Succinate 25 MG DAILY 03/29 1000 AC 03/30 PO 1000 Oxycodone HCl 90 MG Q6P PRN 03/29 0900 AC 03/31 PO 0610 Polyethylene Glycol 17 GM DAILY 03/29 1000 AC 03/30 PO 1002 Senna/Docusate Sodium 1 TAB BID PRN 03/29 0900 AC PO Last 24 Hrs of Lab/Faheem Results Last 24 Hrs of Labs/Mics: Microbiology 03/31 0741 URINE ROUT: Urine Culture - ORD Assessment/Plan Assessment: Ms. Ortiz is a 56-year-old female with past medical history of complex regional pain syndrome, hypertension, mitral valve prolapse, narcolepsy, thyroid nodules, bilateral lymphedema came to [place] ER with complaints of left leg pain since morning found to have proximal tibial and fibular nondisplaced transverse fracture and admitted to general medical floor for further investigation and management. Problem list Fracture proximal tibial and fibular diaphysis Osteoporosis Hypertension Bilateral chronic lymphedema Narcolepsy Complex regional pain syndrome Patient was subsequently admitted to General Medicine floor for the management as follows: - Conservative management with pain meds for now - Obtain record from PCP regarding U/S doppler last week. - Pending Ortho consult in the AM - PT/OT recommeded STR. 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 - Continue Metoprolol at home dose. - Patient finished Dicloxacillin a week prior this admission for suspect cellulitis w/ bilateral chronic lymp[hedema. Will continue monitor if any signs of infection. - Pain management w/ Dilaudid 2mg IV and 16 mg PO every 6, oxycodone CR 90 mg every 12, lidocaine patch, IV Tylenol 1g every 6. - Urinalysis showed +ve LE/Nitrites, will start macrobid 100mg q 12 pending culture results - Patient's PCP is Fox Ballard in [place] [phone]. Dr. Ballard stated over hte phone that patient was currently on 24mg Dilaudid q4h prn and 150mg Oxycodone q4h prn. Dr. Ballard suggested that TURCIOS-2 and IV acetaminophen may work well for patient's bone pain. DVT prophylaxis-subcutaneous heparin Regular Diet Full Code Problem List: 1. Osteoporosis 2. Fracture of proximal end of tibia and fibula Pain Ratin Pain Location: left tibial complex pain syndrome Pain Goal: Pain 7 or less Pain Plan: see AP Tomorrow's Labs & Rationales: Trina Hawkins MD 03/31/17 1213: Attending MD Review Statement Attending Statement Attending MD Statement: examined this patient, discuss w/resident/PA/PUBLIC HEALTH AIDE, agreed w/resident/PA/PUBLIC HEALTH AIDE, reviewed EMR data (avail), discussed with nursing, discussed with case mgmt Attending Assessment/Plan: Patient is complaining of some burning and pain on urination. She has no documented fever. Her UA is positive for 25-50 white cells with nitrite positive. Agree with Macrobid for cholecystitis and will follow up the urine culture. Pain is still a major issue and she is chronically narcotic dependent and on very high-dose narcotics as an outpatient. She also gets very severe anxiety and hardly participated with PT because of the pain and anxiety. We will increase her Tylenol to to 16 by mouth every 6 when necessary with her oxycodone and my hope is that in the next 24-48 hours will get the pain under control for discharge with outpatient STR.
[2017-03-31 23:02] VITALS: BP 140/85
--- NOTE | 2017-04-01 05:41 | PN- Housestaff ---
Ailyn CUI,Fox 04/01/17 0641: Assessment/Plan Assessment: Ms. Ortiz is a 56-year-old female with past medical history of complex regional pain syndrome, hypertension, mitral valve prolapse, narcolepsy, thyroid nodules, bilateral lymphedema came to [facility] with complaints of left leg pain since morning found to have proximal tibial and fibular nondisplaced transverse fracture and admitted to general medical floor for further investigation and management. Problem list Fracture proximal tibial and fibular diaphysis Osteoporosis Hypertension Bilateral chronic lymphedema Narcolepsy Complex regional pain syndrome Patient was subsequently admitted to General Medicine floor for the management as follows: - Conservative management with pain meds for now - Obtain record from PCP regarding U/S doppler last week. - Pending Ortho consult in the AM - PT/OT recommeded STR. 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 - Continue Metoprolol at home dose. - Patient finished Dicloxacillin a week prior this admission for suspect cellulitis w/ bilateral chronic lymp[hedema. Will continue monitor if any signs of infection. - Pain management w/ Dilaudid 2mg IV and 16 mg PO every 6, oxycodone CR 90 mg every 12, lidocaine patch, IV Tylenol 1g every 6. - Urinalysis showed +ve LE/Nitrites, will start macrobid 100mg q 12 pending culture results - Patient's PCP is Fox Ballard in [place] [phone]. Dr. Ballard stated over hte phone that patient was currently on 24mg Dilaudid q4h prn and 150mg Oxycodone q4h prn. Dr. Ballard suggested that TURCIOS-2 and IV acetaminophen may work well for patient's bone pain. DVT prophylaxis-subcutaneous heparin Regular Diet Full Code Fili CUI,Trina 04/01/17 9994: Attending MD Review Statement Attending Statement Attending MD Statement: examined this patient, discuss w/resident/PA/WAFER BATTER MIXER, agreed w/resident/PA/WAFER BATTER MIXER, discussed with nursing, reviewed images Attending Assessment/Plan: Pt continues to complain of severe pain. We increased the dilaudid to 16 mg yesterday every 6 hours and despite that she is using the IVs. Yesterday after PT got her into a chair it took 4 people to manually lift her and put her back into bed. The issue is that she takes very high-dose narcotics in the outpatient so controlling her pain is very challenging. We will also started on nitrofurantoin here for the suspected cystitis and are awaiting the urine culture. We will also started vitamin D replacement for vitamin D deficiency. I'm going to increase the Dilaudid to 20 mg every 6 when necessary and decrease the rate of the IV when necessary, to every 8. She is also not having bowel movements now so we'll give her senna S twice a day [id number] with a Dulcolax suppository as needed.
[2017-04-01 06:43] VITALS: BP 144/70
--- NOTE | 2017-04-01 09:18 | PN- Att Addend ---
Attending Addendum Attending Brief Note Pt continues to complain of severe pain. We increased the dilaudid to 16 mg yesterday every 6 hours and despite that she is using the IVs. Yesterday after PT got her into a chair it took 4 people to manually lift her and put her back into bed. The issue is that she takes very high-dose narcotics in the outpatient so controlling her pain is very challenging. We will also started on nitrofurantoin here for the suspected cystitis and are awaiting the urine culture. We will also started vitamin D replacement for vitamin D deficiency. I'm going to increase the Dilaudid to 20 mg every 6 when necessary and decrease the rate of the IV when necessary, to every 8. She is also not having bowel movements now so we'll give her senna S twice a day [id number] with a Dulcolax suppository as needed.
[2017-04-01 14:43] VITALS: BP 118/80
--- NOTE | 2017-04-01 15:11 | PN- Housestaff ---
Gideon Bales 04/01/17 1504: Subjective Follow-up For: Fracture proximal tibial and fibular diaphysis Osteoporosis Hypertension Bilateral chronic lymphedema Narcolepsy Complex regional pain syndrome Subjective: Pain much improved with new regimen. Last BM monday night. Afebrile. Review of Systems Constitutional: Reports: see HPI. Objective Last 24 Hrs of Vital Signs/I&O Vital Signs Date Time Temp Pulse Resp B/P B/P Pulse O2 O2 Flow FiO2 Mean Ox Delivery Rate 04/01 1443 98.9 93 18 118/80 93 Room Air 04/01 1020 146/82 04/01 0643 99.3 77 18 144/70 91 Room Air 03/31 2302 99.3 88 18 140/85 97 Room Air Intake & Output 04/01 1600 04/01 0800 04/01 0000 Intake Total 750 200 200 Output Total 300 700 Balance 450 -500 200 Intake, Oral 750 200 200 Number 0 Bowel Movements Output, Urine 300 700 Physical Exam General Appearance: Alert, Oriented X3, Cooperative Cardiovascular: Regular Rate Lungs: Clear to Auscultation, Normal Air Movement Abdomen: Normal Bowel Sounds, Soft Extremities: Bilateral edema 2+ Current Medications: Current Medications Sig/Diego Start time Last Medication Dose Route Stop Time Status Admin Acetaminophen 1,000 MG Q6P PRN 03/29 1015 AC 03/30 N/A 1 UNIT IV 1002 Bisacodyl 10 MG DAILY PRN 04/01 0845 AC SC Cholecalciferol 2,000 IU DAILY 03/31 1000 AC 04/01 PO 1020 Heparin Sodium 5,000 UNIT Q8 03/29 0600 AC 04/01 (Porcine) SC 1326 Hydromorphone HCl 2 MG Q8P PRN 04/01 0900 AC IV Hydromorphone HCl 20 MG Q6P PRN 04/01 0900 AC 04/01 PO 1021 Hydromorphone HCl 16 MG Q6P PRN 03/31 1015 DC 04/01 PO 0220 Hydromorphone HCl 2 MG Q6P PRN 03/30 1530 DC 04/01 IV 0736 Lidocaine 1 PAT Q24H 03/28 2300 AC 03/29 EXT 2342 Metoprolol Succinate 25 MG DAILY 03/29 1000 AC 04/01 PO 1020 Nitrofurantoin 100 MG Q12 03/31 1036 AC 04/01 PO 1020 Oxycodone HCl 90 MG Q6P PRN 03/29 0900 AC 04/01 PO 1326 Polyethylene Glycol 17 GM DAILY 03/29 1000 AC 04/01 PO 1020 Senna/Docusate Sodium 1 TAB BID 04/01 1000 AC 04/01 PO 1020 Senna/Docusate Sodium 1 TAB BID PRN 03/29 0900 DC PO 04/01 0959 Assessment/Plan Assessment: Ms. Ortiz is a 56-year-old female with past medical history of complex regional pain syndrome, hypertension, mitral valve prolapse, narcolepsy, thyroid nodules, bilateral lymphedema came to [place] [facility] with complaints of left leg pain since morning found to have proximal tibial and fibular nondisplaced transverse fracture and admitted to general medical floor for further investigation and management. Problem list Fracture proximal tibial and fibular diaphysis Osteoporosis Hypertension Bilateral chronic lymphedema Narcolepsy Complex regional pain syndrome - Dilaudid increased to 20 mg q6h, and IV PRN. Bowel regimen. - Obtain record from PCP regarding U/S doppler last week. - Immobilize knee. - Artis wrap underneath the knee immobilizer. -Nonweightbearing left lower extremity -No flexion of the left knee - PT/OT recommeded STR. 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 - Continue Metoprolol at home dose. - Pain management w/ Dilaudid 2mg IV and 20 mg PO every 8, oxycodone CR 90 mg every 12, lidocaine patch, IV Tylenol 1g every 6. - Urinalysis showed +ve LE/Nitrites, continue macrobid 100mg q 12 pending culture results. GNR in urine, follow C and S. DVT prophylaxis-subcutaneous heparin Regular Diet Full Code Problem List: 1. Fracture of proximal end of tibia and fibula Pain Ratin Pain Location: Left leg Pain Goal: Pain 4 or less Pain Plan: Narcs ATC and PRN Tomorrow's Labs & Rationales: Not needed. Fili CUI,Trina 04/02/17 0849: Attending MD Review Statement Attending Statement Attending MD Statement: examined this patient, discuss w/resident/PA/WORKDAY CONSULTANT, agreed w/resident/PA/WORKDAY CONSULTANT, reviewed EMR data (avail), discussed with nursing, discussed with case mgmt Attending Assessment/Plan: See medical brief addendum note dated 04/01/2017.
[2017-04-01 22:34] VITALS: BP 124/80
[2017-04-02 06:30] VITALS: BP 122/76
--- NOTE | 2017-04-02 08:55 | PN- Att Addend ---
Attending Addendum Attending Brief Note Patient seen and examined. She has chronic pain but now on the increased dose of Dilaudid it appears to be fairly in control. On exam pressure is 122/76, MAXIMUM TEMPERATURE is 99, blood heart rate is 76 breathing at 16-18. Awake alert oriented, lungs are clear to auscultation, heart is S1-S2 regular abdomen is soft. Her left knee is immobilized and she has chronic lymphedema and stasis. Patient is constipated. She is not uncomfortable and says she goes to have a bowel movement only every 3-4 days. I explained to her at length that she is on very high-dose narcotics and this is the maximum I feel comfortable giving her. I also explained that given her complex regional pain syndrome and chronic opiate dependence we are never going to be able to have her pain free and the best we can do is reduce her score from an 8 to a 4 out of 10. The plan is to give her a suppository today, after she has a bowel movement she can leave with outpatient follow-up with orthopedics and pain management. She has a UTI that were treated with nitrofurantoin and will follow up on the urine cultures.
[2017-04-02] MEDS ORDERED: VITAMIN D31000 UNI2 PO (09:07)
[2017-04-02] MEDS ORDERED: ROXICODONE30 M1 PO (09:07)
[2017-04-02] MEDS ORDERED: HYDROMORPHONE HC2 M1 PO (09:07)
[2017-04-02] MEDS ORDERED: SENNA PLUS TAB1 EACH PO (09:10)
[2017-04-02] MEDS ORDERED: LIDODERM1 EACH EXT (09:10)
[2017-04-02] MEDS ORDERED: MIRALAX119 GM PO (09:10)
[2017-04-02] MEDS ORDERED: FLEET ENEMA133 ML PR (09:10)
[2017-04-02] MEDS ORDERED: BISAC-EVAC10 M1 PR (09:10)
[2017-04-02] MEDS ORDERED: MACRODANTIN50 M1 PO (09:12)
--- NOTE | 2017-04-02 09:35 | PN- Housestaff ---
Subjective Follow-up For: Fracture proximal tibial and fibular diaphysis Osteoporosis Hypertension Bilateral chronic lymphedema Narcolepsy Complex regional pain syndrome Subjective: Patient felt the pain is better controlled for now. Pending discharge to nursing facility Review of Systems Constitutional: Reports: see HPI. Objective Last 24 Hrs of Vital Signs/I&O Vital Signs Date Time Temp Pulse Resp B/P B/P Pulse O2 O2 Flow FiO2 Mean Ox Delivery Rate 04/02 0757 90 122/76 04/02 0630 99.7 90 18 122/76 92 Room Air 04/01 2234 99.3 85 18 124/80 93 Room Air 04/01 1443 98.9 93 18 118/80 93 Room Air Intake & Output 04/02 1600 04/02 0800 04/02 0000 Intake Total 200 Output Total 300 550 Balance -300 -350 Intake, Oral 200 Number 1 Bowel Movements Output, Urine 300 550 Patient 68.039 kg Weight Physical Exam General Appearance: Alert, Oriented X3, Cooperative, Mild Distress Cardiovascular: Regular Rate Lungs: Clear to Auscultation, Normal Air Movement Abdomen: Normal Bowel Sounds, Soft Extremities: bilateral +2 edema, lidoderm patch on LLE Current Medications: Current Medications Sig/Diego Start time Last Medication Dose Route Stop Time Status Admin Acetaminophen 1,000 MG Q6P PRN 03/29 1015 AC 03/30 N/A 1 UNIT IV 1002 Bisacodyl 10 MG DAILY PRN 04/01 0845 AC 04/02 DC 1042 Cholecalciferol 2,000 IU DAILY 03/31 1000 AC 04/02 PO 0757 Heparin Sodium 5,000 UNIT Q8 03/29 0600 AC 04/02 (Porcine) SC 1317 Hydromorphone HCl 2 MG Q8P PRN 04/01 0900 AC 04/02 IV 0502 Hydromorphone HCl 20 MG Q6P PRN 04/01 0900 AC 04/02 PO 0759 Lidocaine 1 PAT Q24H 03/28 2300 AC 03/29 EXT 2342 Metoprolol Succinate 25 MG DAILY 03/29 1000 AC 04/02 PO 0757 Nitrofurantoin 100 MG Q12 03/31 1036 AC 04/02 PO 0757 Oxycodone HCl 90 MG Q6P PRN 03/29 0900 AC 04/02 PO 1149 Polyethylene Glycol 17 GM DAILY 03/29 1000 AC 04/02 PO 0757 Senna/Docusate Sodium 1 TAB BID 04/01 1000 AC 04/02 PO 0757 Sodium Phosphate 1 UNIT ONCE PRN 04/02 0845 AC DC Last 24 Hrs of Lab/Faheem Results Last 24 Hrs of Labs/Mics: Laboratory Tests 04/02/17 0800: Anion Gap 11, Estimated GFR > 60, BUN/Creatinine Ratio 30.0 H Assessment/Plan Assessment: Ms. Ortiz is a 56-year-old female with past medical history of complex regional pain syndrome, hypertension, mitral valve prolapse, narcolepsy, thyroid nodules, bilateral lymphedema came to [place] [facility] with complaints of left leg pain since morning found to have proximal tibial and fibular nondisplaced transverse fracture and admitted to general medical floor for further investigation and management. Problem list Fracture proximal tibial and fibular diaphysis Osteoporosis Hypertension Bilateral chronic lymphedema Narcolepsy Complex regional pain syndrome - Dilaudid increased to 20 mg q6h, and IV PRN. Bowel regimen. - Obtain record from PCP regarding U/S doppler last week. - Immobilize knee. - Artis wrap underneath the knee immobilizer. -Nonweightbearing left lower extremity -No flexion of the left knee - PT/OT recommeded STR. 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 - Continue Metoprolol at home dose. - Pain management w/ Dilaudid 2mg IV and 20 mg PO every 8, oxycodone CR 90 mg every 12, lidocaine patch, IV Tylenol 1g every 6. - Will discharge patient w/ current pain regiment without IV dilaudid. Patient would need a bowel movement prior being discharged to nursing facility - Urinalysis showed +ve LE/Nitrites, continue macrobid 100mg q 12 pending culture results. GNR in urine, follow C and S. DVT prophylaxis-subcutaneous heparin Regular Diet Full Code Problem List: 1. Osteoporosis 2. Fracture of proximal end of tibia and fibula Pain Ratin Pain Location: LLE Pain Goal: Pain 4 or less Pain Plan: see AP Tomorrow's Labs & Rationales: NA
[2017-04-02 14:15] VITALS: BP 122/76
[2017-04-02 15:29] VITALS: BP 142/70
== END 2017-04-02 16:30 | DRG 543 ==
LOC: ERH 17:15 → 2NA 20:53 → ERHI 20:53 → ENRESERV 21:46 → ENTRNSPT 22:31 → 2NA 22:55 → CMPTRNSPT 03-29 07:28 → 2NA 03-29 07:49 → ENPENDDIS 04-02 10:12 → 2NA 04-02 16:30
PROVIDERS: Internal Medicine Endocrinology, Diabetes & Metabolism; Physician Assistant Medical
DX: M80.862A Other osteoporosis with current pathological fracture, left lower leg, initial encounter for fracture (principal); G90.50 Complex regional pain syndrome I, unspecified; F11.20 Opioid dependence, uncomplicated; E04.1 Nontoxic single thyroid nodule; G47.419 Narcolepsy without cataplexy; I89.0 Lymphedema, not elsewhere classified; I10 Essential (primary) hypertension; I34.1 Nonrheumatic mitral (valve) prolapse; K59.09 Other constipation; F41.9 Anxiety disorder, unspecified; Z96.642 Presence of left artificial hip joint; M85.80 Other specified disorders of bone density and structure, unspecified site
CPT/HCPCS: 2NASP; 36415; 73562-LT; 73610-LT; 81001; 82436; 87086; 93005; 93010; 96372; 97110-GO; 97116-GO; 97140-GO; 97161-GP; 97167-GO; 97530-GO; J0131; J1644; J2270; Q2036